=== PATIENT | male | born 1985 | race American Indian/Alaskan Native ===

== ENCOUNTER 2025-03-24 02:56 | Emergency (ER) | payer MEDICAID, SELFPAY ==
[2025-03-24 02:58] VITALS: BP 129/86; PULSE 109; RESP 18; TEMP 36.7; O2SAT 96; BMI 30.8
--- NOTE | 2025-03-24 03:25 | ED.GENADULT ---
HPI - General Adult General Chief complaint: Dental/Oral Stated complaint: Injury Time Seen by Provider: 03/24/25 03:09 Source: patient Mode of arrival: ambulatory Limitations: no limitations History of Present Illness ED Provider: Dr. Mamta Gannon HPI narrative: Patient comes to the emergency room complaining of dental pain in the right side. Patient states that he has been seen by dentist in [place]. Patient has a referral in 2 weeks for a maxillofacial surgeon. Patient states that he has been complaining of worsening pain. Also, patient states that, he had a tick in his ear, believes it has been then for a long time, does not know how long, and states that somehow he ended up spitting it out. And finally, patient states that his health insurance told him that because he does not have a primary care physician, he needed to come to the emergency room to get all of his pain medications refilled. Related Data Previous Rx's ?Medication ?Instructions ?Recorded amoxicillin 500 mg tablet 500 mg PO TID #30 tabs 03/24/25 Allergies Allergy/AdvReac Type Severity Reaction Status Date / Time No Known Allergies Allergy Verified 03/24/25 03:00 Review of Systems Review of Systems: Constitutional : No Weight loss, No Fever, No Chills, No Night Sweats, No Fatigue, No Malaise ENT/Mouth : Complaining of dental pain, No Hearing loss, No Ear Pain, No Nasal Congestion, No Sinus Pain, No Hoarseness, No sore throat, No Rhinorrhea, No Swallowing Difficulty Eyes: No Eye Pain, No Swelling, No Redness, No Foreign Body, No Discharge, No Vision Changes Cardiovascular : No Chest Pain, No SOB, No Dyspnea on Exertion, No Orthopnea, No Edema, No Palpitations Respiratory : No Cough, No Sputum, No Wheezing, No Smoke Exposure, No Dyspnea Gastrointestinal : No Nausea, No Vomiting, No Diarrhea, No Constipation, No abdominal Pain, No Hematochezia, No Melena Genitourinary : no irregular bleeding, No Dysuria, No Urinary Frequency, No Hematuria, No Urinary Incontinence, No Urgency, No Flank Pain, No Urinary Flow Changes, No Hesitancy Musculoskeletal : No joint pain, No Myalgias, No Joint Swelling Skin : No Skin Lesions, No rash Neuro : No Weakness, No Numbness, No Paresthesias, No Loss of Consciousness, No Dizziness, No Headache Psych : No Anxiety/Panic, No Depression, No SI/HI/AH/VH, No Social Issues, Heme/Lymph: No Bruising, No Bleeding,No Lymphadenopathy Endocrine : No Polyuria, No Polydipsia, No Temperature Intolerance Physical Exam ED Exam Exam: Appearance: Alert. Oriented X3. No acute distress. Eyes: Pupils equal, round and reactive to light. ENT: Pharynx normal. Poor dentition Neck: Normal inspection. Neck supple. No lymph nodes noted. No crepitus CVS: Normal heart rate and rhythm. Pulses normal. Normal S1 and S2 Respiratory: No respiratory distress. Breath sounds normal. No Wheezing. No rales Abdomen: Soft and nontender. No rigidity. No distention. Skin: Skin warm and dry. Normal skin color. Normal skin turgor. Extremities: No lower extremity edema. No Lacerations. No Rash Neuro: Oriented X 3. No motor deficit. No sensory deficit. Moving all extremities. No slurred speech. CN 2 through 12 grossly intact Psych: calm, bizarre affect Vital Signs: Vital Signs - 24 hr 03/24/25 02:58 Temperature 98.1 F Pulse Rate 109 H Respiratory Rate 18 Blood Pressure 129/86 Pulse Oximetry 96 Oxygen Delivery Method Room Air BMI result Body Mass Index 30.8 Medications Administered Discontinued Medications Generic Name Dose Route Start Last Admin Trade Name Anupq PRN Reason Stop Dose Admin Amoxicillin 500 mg 03/24/25 03:23 03/24/25 03:33 Amoxicillin 500 Mg Capsule PO 03/24/25 03:24 500 mg ONCE ONE Administration Ketorolac Tromethamine 60 mg 03/24/25 03:23 03/24/25 03:33 Ketorolac Tromethamine 60 Mg/2 Ml Vial IM 03/24/25 03:24 Not Given ONCE ONE Medical Decision Making Medical Decision Making MDM Narrative: Patient reports dental pain, has a follow-up appointment with maxillofacial surgery in 2 weeks. Patient was given p.o. amoxicillin Initially, patient agreed to take Toradol. However, when the patient's nurse approached him with the Toradol, he said that that shit doesnt work I reviewed patient's mass pad, patient gets prescribed gabapentin, Adderall and alprazolam. Consistently, patient has been getting his medications refilled, last was at the beginning of February. Patient should have enough medications to get him through the next 2 weeks until he gets seen by his provider. Patient states that there was a take in his ear. Just in case, we will send serologies to the lab. Discussed with the patient that if positive he will be contacted. Just before discharge, when registration was taking his information, patient said to registration staff that he was suicidal. We returned to talk to the patient, when I spoke to the patient and the patient's nurse, patient is adamant that he did not say that, has no intention of hurting himself. Denies SI or HI. Patient requested narcotics for his pain. This request was declined. Patient just said give me my flintstone vitamin and let me go As mentioned above, patient said to the registration staff that he was SI. I considered sectioning to of the patient. However, when I spoke with the patient, he was adamant that he did not make such statements and he is not SI or HI. Discharge Plan Discharge Clinical Impression: Toothache Patient Disposition: Home, Self-Care Instructions: Toothache (ED) Additional Instructions: Please follow-up with your primary care physician tomorrow. If you have any worsening or new symptoms, please return to the emergency room or call 911 Prescriptions: New amoxicillin 500 mg tablet 500 mg PO TID Qty: 30 0RF Print Language: Peruvian
--- OUTSIDE RECORDS SUMMARY | 2025-03-24 03:41 | XMS_ITS | Encounter Summary ---
Author Organization [facility] Address [address] [place] [address] Phone Care Team Providers Care Top Frame Maker Name Role Phone Andre Capps MD, DDS Unavailable [phone] Max Tyler MD Primary Care Provider Cristal Benjamin MD Unavailable Kartik Mandel MD Primary Care Provider [phone] Reason for Visit * Reason Onset Date Comments Dizziness 06/04/2023 Encounter Details Date Type Department Care Team (Late st Contact Info) Description 06/04/2023 Nurse Triage [facility] Medicine [address] [place] [address] Cristal Benjamin MD [address] [place] [address] MARIA [email or web address] Dizziness Social History Tobacco Use Types Packs/Day Years Used Date Smoking Tobacco: Every Day Cigarettes Smokeless Tobacco: Never Alcohol Use Standard Drinks/Week Comments Yes 3 (1 standard drink = 0.6 oz pur e alcohol) daily Child or Family Care Answer Date Record ed Do you have problems with on e of the following making it difficult for you to work, study, or receive health care? No 08/30/2020 Education Answer Date Recorded Are you interested in more education? Not on lanie e 09/06/2022 Are you concerned about learning? Not on file 09/06/2022 No 09/06/2022 No 09/06/2022 Food Answer Date Recorded Within the past 6 months we worried whether our food would run out before we got money to buy more. I choose not to answer 08/30/2020 Within the past 6 months the food we bought just didn't last and we didn't have enough money to get more. I choose not to answer 08/30/2020 Paying for Meds Answer Date Recorded Do you have trouble paying for medicines? No 08/30/2020 Paying Utility Bills Answer Date Record ed Do you have trouble paying your heating or elect ricity bill? No 08/30/2020 Transportation Answer Date Recorded Has the lack of transportati on kept you from medical appointments or from getting medications? No 08/30/2020 Unemployment Answer Date Recorded Are you currently unemployed or working on a part-time or temporary basis, and looking for work? No 08/30/2020 Digital Access Answer Date Recorded No 09/19/2022 No 09/19/2022 Reliable internet access at home? Not on file 09/19/2022 Device with a working camera? Not on file Sex and Gender Information Value Date Recorded Sex Assigned at Male 05/28/2022 9:40 PM EST Legal Sex Male 9:10 PM EDT Gender Identity Male 05/28/2022 9:40 PM EST Sexual Orientation Straight 05/28/2022 9: 40 PM EST Primary [place] Affiliation [place] documented as of this encounter Progress Notes * Soraida Borrego, MAGUE - 06/05/2023 10:31 AM EST Demetri calls, reports infection improved since beginning medicine Saturday. Feeling lightheaded again today, concerned about blood sugar. At work right now, feels safe driving. Lightheadedness primarilyoccurs with position changes. Feels like symptoms are stress and anxiety related and from pushing himself too hard. Ate 1/2 protein bar and yogurt 1 hour ago. Drank 40 oz of water and coffee, more richi er than coffee, so far today. Working to rectify work stressors. Thinks he may need some time off work, would like to discuss, possibly FMLA. Same day visit scheduled. * Araceli Moore FNP - 06/04/2023 10:53 AM EST Agreed thank you. * Jim Reynoso RN - 06/04/2023 10:24 AM EST Pt reports that his knees became wobbly in the evening yesterday and fell to the ground around 7 pm, was sweating and had chills, no siezure activty, had not eatten since 8 am, did not lose consciousiness, ate dinner and rested/slept till am, called out from work, knees are back to normal. slight lingering fatigue. Has been working hard at work. States that he's not very concerned but wanted pcp and office aware, advised that this sound like occurrence of hypoglycemia due to not having eat for long hours. Advised to try to eat through out the day, advised quick snacks when unable to eat a full meal. Pt will continue to monitor and call back as needed. FYI to pcp and POD Reason for Disposition Weakness from poor fluid intake Protocols used: Weakness (Generalized) and [id number] Nurse Triage Encounter Note Reason for Triage Eh Mosquera contacted office for Fall Call Disposition Home Care Patient/caregiver understands and will follow disposition: Patient/caregiver understands and will follow care advice: Yes, Plans To Follow Advice Disposition Comments: Protocols used: Weakness (Generalized) And Iadjttn-Bmyje-Ju Initial Symptom Screening and Assessment IA Symptom Onset Less than 24 hours Symptom Severity Mild - does not interfere with normal activities Symptom Pattern Other (Comment) Aggravating factors or triggers Other (comment) Home Treatments Rest Did the home treatments work? Yes Location? RLE; LLE Fever? No Other related symptoms Pt reports that his knees became wobbly in the evening yesterday and fell tothe ground around 7 pm, was sweating and had chills, no siezure activty, had not eatten since 8 am,did not lose consciousiness, ate dinner and rested/slept till am, called out from work, knees are back to normal. slight lingering fatigue. Has been working hard at work. Head or Brain (Neuro) Mental Status/Level of Consciousness Alert/Awake Loss of Consciousness? No Neuro Symptoms? Weakness Neuro other related symptoms weakness has resolved this am. Care Advice Given Care Advice Patient/Caregiver understands and will follow care advice?: Yes, plans to follow advice CALL BACK IF: * Unable to stand or walk * Passes out * Breathing difficulty occurs * You become worse REASSURANCE AND EDUCATION: * Not drinking enough fluids and being a little dehydrated is a common cause of mild weakness. * Vomiting and diarrhea can lead to dehydration. * During hot weather you sweat more and can become dehydrated more easily. * Here is some care advice that should help. DRINK FLUIDS: * Drink several glasses of fruit juice, other clear fluids, or water. * This will improve hydration and blood glucose. REST: * Lie down with feet elevated for 1 hour. * This will improve blood flow and increase blood flow to the brain. CALL BACK IF: * Still feeling weak after 2 hours of rest and fluids * Passes out (faints) * You become worse Patient will call back with additional questions or if symptoms change or worsen Jim Reynoso RN Reason for Disposition and Assessment documented in this encounter Plan of Treatment Not on file documented as of this encounter Visit Diagnoses Not on filedocumented in this encounter Additional Health Concerns Assessment Noted Time PHQ-9 Depression Total Score: 9 05/31/19 4:16 PM EST PHQ-2 Depression Total Score: 4 05/31/19 24 4:16 PM EST documented as of this encounter Care Teams Top Frame Maker Relationship Specialty Start Date End Date Max Tyler MD [address] [place] [id number] [email or web address] PCP - General 01/06/25 03/22/25 Kartik Mandel MD [address] [place] [address] [email or web address] PCP - General Family Medicine 03/23/25 Andre Capps MD, DDS [address] [place] [phone] [email or web address] machine operator 05/26/24 08/03/24 Cristal Benjamin MD [address] [place] [address] [address] [place] [address] MARIA [email or web address] Insurance Assigned Provider 03/13/25 documented as of this encounter Additional Source Comments The information contained in this document represents components of the legal health record. It is not the complete legal health record.[facility]
--- OUTSIDE RECORDS SUMMARY | 2025-03-24 03:41 | XMS_ITS | Encounter Summary ---
Author Organization [facility] Address [address] [place] [address] Phone Care Team Providers Care Family Psychologist Name Role Phone Max Tyler MD Primary Care Provider [phone] Cristal Benjamin MD Unavailable Kartik Mandel MD Primary Care Provider [phone] Encounter Details Date Type Department Care Team (Late st Contact Info) Description 09/25/2024 Procedure Pass [facility], Ct Scan - [address] [address] Social History Tobacco Use Types Packs/Day Years Used Date Smoking Tobacco: Former Cigarettes Smokeless Tobacco: Never Comments:Few months stopped Alcohol Use Standard Drinks/Week Comments Not 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 Not on file Intimate Partner Violence Answer Date R ecorded Are you denied basic needs s uch as food, clothing, or medical care? No 09/10/2024 In the past 12 months have y ou been in a relationship with a person who hurts, threatens, or tries to control you? No 09/10/2024 Are you denied basic needs s uch as food, clothing, or medical care? No 09/10/2024 In the past 12 months have y ou been in a relationship with a person who hurts, threatens, or tries to control you? No 09/10/2024 Sex and Gender Information Value Date Recorded Sex Assigned at Male 05/28/2022 9:40 PM EST Legal Sex Male 9:10 PM EDT Gender Identity Male 05/28/2022 9:40 PM EST Sexual Orientation Straight 05/28/2022 9: 40 PM EST Primary [place] Affiliation [place] documented as of this encounter Plan of Treatment Not on file documented as of this encounter Visit Diagnoses Not on filedocumented in this encounter Additional Health Concerns Assessment Noted Time PHQ-9 Depression Total Score: 9 05/31/19 24 4:16 PM EST PHQ-2 Depression Total Score: 4 05/31/19 4:16 PM EST documented as of this encounter Care Teams Family Psychologist Relationship Specialty Start Date End Date Max Tyler MD [address] [place] [address] [email or web address] PCP - General 01/06/25 03/22/25 Kartik Mandel MD [address] [place] [phone] [email or web address] PCP - General Family Medicine 03/23/25 Cristal Benjamin MD [address] [place] [address] [address] [place] [address] MARIA [email or web address] Insurance Assigned Provider 03/13/25 documented as of this encounter Additional Source Comments The information contained in this document represents components of the legal health record. It is not the complete legal health record.[facility]
--- OUTSIDE RECORDS SUMMARY | 2025-03-24 03:41 | XMS_ITS | Encounter Summary ---
Author Organization [facility] Address [address] [place] [address] Phone Care Team Providers Care Datastage Consultant Name Role Phone Andre Capps MD, DDS Unavailable [phone] Max Tyler MD Primary Care Provider [phone] Cristal Benjamin MD Unavailable [phone] Kartik Mandel MD Primary Care Provider [phone] Encounter Details Date Type Department Care Team (Late st Contact Info) Description 07/24/2024 Procedure Pass [facility], Ct Scan - [address] [id number] Social History Tobacco Use Types Packs/Day Years [...] as food, clothing, or medical care? No 06/17/2024 In the past 12 months have y ou been in a relationship with a person who hurts, threatens, or tries to control you? No 06/17/2024 Are you denied basic needs s uch as food, clothing, or medical care? No 06/17/2024 In the past 12 months have y ou been in a relationship with a person who hurts, threatens, or tries to control you? No 06/17/2024 Sex and Gender Information Value Date Recorded Sex Assigned at Male 05/28/2022 9:40 PM EST Legal Sex Male 9:10 PM EDT Gender Identity Male 05/28/2022 9:40 PM EST Sexual Orientation Straight 05/28/2022 9: 40 PM EST Primary [place] Affiliation [place] documented as of this encounter Plan of Treatment Not on file documented as of this encounter Visit Diagnoses Not on filedocumented in this encounter Additional Health Concerns Assessment Noted Time PHQ-9 Depression Total Score: 9 05/31/19 24 4:16 PM EST PHQ-2 Depression Total Score: 4 05/31/19 24 4:16 PM EST documented as of this encounter Care Teams Datastage Consultant Relationship Specialty Start Date End Date Max Tyler MD [address] [place] [phone] [email or web address] PCP - General 01/06/25 03/22/25 Kartik Mandel MD [address] [place] [phone] PCP - General Family Medicine 03/23/25 Andre Capps MD, DDS [address] [place] [phone] [email or web address] handwriting expert 05/26/24 08/03/24 Cristal Benjamin MD [address] [place] [address], [address] [place] [address] MARIA [email or web address] Insurance Assigned Provider 03/13/25 documented as of this encounter Additional Source Comments The information contained in this document represents components of the legal health record. It is not the complete legal health record.[facility]
--- OUTSIDE RECORDS SUMMARY | 2025-03-24 03:41 | XMS_ITS | Encounter Summary ---
Author Organization [facility] Address [address] [place] [address] Phone Care Team Providers Care General Surgery Physician Assistant Name Role Phone Andre Capps MD, DDS Unavailable [phone] Max Tyler MD Primary Care Provider Cristal Benjamin MD Unavailable Kartik Mandel MD Primary Care Provider [phone] Encounter Details Date Type Department Care Team (Late st Contact Info) Description 07/24/[address] [facility] [address] [place] [address] Cristal Benjamin MD [address] [place] [address] MARIA [email or web address] Social History Tobacco Use Types Packs/Day Years [...] Straight 05/28/2022 9: 40 PM EST Primary [place] Affiliation [place] documented as of this encounter Plan of Treatment Not on file documented as of this encounter Visit Diagnoses Not on filedocumented in this encounter Additional Health Concerns Assessment Noted Time PHQ-9 Depression Total Score: 9 05/31/19 4:16 PM EST PHQ-2 Depression Total Score: 4 05/31/19 4:16 PM EST documented as of this encounter Care Teams General Surgery Physician Assistant Relationship Specialty Start Date End Date Max Tyler MD [address] [place] [address] [email or web address] PCP - General 01/06/25 03/22/25 Kartik Mandel MD [address] [place] [address] [email or web address] PCP - General Family Medicine 03/23/25 Andre Capps MD, DDS [address] [place] [phone] [email or web address] tech 05/26/24 08/03/24 Cristal Benjamin MD [address] [place] [address] [address] [place] [address] MARIA [email or web address] Insurance Assigned Provider 03/13/25 documented as of this encounter Additional Source Comments The information contained in this document represents components of the legal health record. It is not the complete legal health record.[facility]
--- OUTSIDE RECORDS SUMMARY | 2025-03-24 03:41 | XMS_ITS | Encounter Summary ---
Author Organization [facility] Address [address] [place] [address] Phone Care Team Providers Care Supervisor Uranium Processing Name Role Phone Max Tyler MD Primary Care Provider Cristal Benjamin MD Unavailable [phone] Kartik Mandel MD Primary Care Provider [phone] Reason for Visit * Reason Onset Date Comments Referral 08/21/2024 Encounter Details Date Type Department Care Team (Late st Contact Info) Description 08/21/2024 Telephone [facility] [address] [place] [address] Cristal Benjamin MD [address] [place] [address] MARIA [email or web address] Referral Social History Tobacco Use Types Packs/Day Years [...] Straight 05/28/2022 9: 40 PM EST Primary [place] Affiliation [place] documented as of this encounter Progress Notes * Karma Rojas RN - 08/21/2024 9:41 AM EDT Spoke to [facility] oral surgery, states they are unable to accept jaw pain diagnosis due to patient's [employer] insurance. Recommend sending referral to [facility] as they take [employer]. Referral pended. * Prabha Charles - 08/21/2024 8:25 AM EDT Patient called in regarding the referral to [facility] Oral Surgery. Patient stated they are not acceptingthe referral due to the diagnosis being pain. Patient is looking to follow up on this stating it feels like his jaw has caved in more. Please contact and advise. Central Support Hybrid Car Mechanic (Please do not reply to this user; this inbox is not monitored.) Thank you. documented in this encounter Plan of Treatment Not on file documented as of this encounter Visit Diagnoses Diagnosis Jaw pain- Primary documented in this encounter Additional Health Concerns Assessment Noted Time PHQ-9 Depression Total Score: 9 05/31/19 4:16 PM EST PHQ-2 Depression Total Score: 4 05/31/19 24 4:16 PM EST documented as of this encounter Care Teams Supervisor Uranium Processing Relationship Specialty Start Date End Date Max Tyler MD [address] [place] [phone] [email or web address] PCP - General 01/06/25 03/22/25 Kartik Mandel MD [address] [place] [phone] PCP - General Family Medicine 03/23/25 Cristal Benjamin MD [address] [place] [address], [address] [place] [address] MARIA [email or web address] Insurance Assigned Provider 03/13/25 documented as of this encounter Additional Source Comments The information contained in this document represents components of the legal health record. It is not the complete legal health record.[facility]
--- OUTSIDE RECORDS SUMMARY | 2025-03-24 03:41 | XMS_ITS | Encounter Summary ---
Author Organization [facility] Address [address] [facility] [address] [place] [address] Phone Care Team Providers Care Stack Matcher Name Role Phone Max Tyler MD Primary Care Provider [phone] Cristal Benjamin MD Unavailable [phone] Kartik Mandel MD Primary Care Provider [phone] Reason for Visit * Reason Onset Date Comments Medication Management 01/13/2025 Encounter Details Date Type Department Care Team (Late st Contact Info) Description 01/13/2025 Telephone [facility] Internal Medicine [address] [place] [address] Max Tyler MD [address] [place] [address] [email or web address] Medication Management Social History Tobacco Use Types Packs/Day Years Used Date Smoking Tobacco: Former Cigarettes Passive Smoke Exposure: Never Smokeless Tobacco: Never Comments:Few months stopped Alcohol Use Standard Drinks/Week Comments Not Currently 0 (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 Never True 01/06/2025 Within the past 6 months the food we bought just didn't last and we didn't have enough money to get more. Never True Residential Stability Answer Date Recor ded What is your housing situation today? I have gail sing 01/06/2025 How many times have you move d in the past 12 months? Zero (I did not move) 01/06/2025 Paying for Meds Answer Date Recorded Do you have trouble paying for medicines? No 01/06/2025 Paying Utility Bills Answer Date Record ed Do you have trouble paying your heating or elect ricity bill? No 01/06/2025 Transportation Answer Date Recorded Has the lack of transportati on kept you from medical appointments or from getting medications? No 01/06/2025 Unemployment Answer Date Recorded Are you currently unemployed or working on a part-time or temporary basis, and looking for work? No 08/30/2020 Digital Access Answer Date Recorded No 01/06/2025 Yes 01/06/2025 Do you have reliable internet access at home? Ye s 01/06/2025 Do you have a device (e.g., phone, tablet, computer) with a working camera? Yes 01/06/2025 Intimate Partner Violence Answer Date R ecorded Are you denied basic needs s uch as food, clothing, or medical care? No 01/06/2025 In the past 12 months have y ou been in a relationship with a person who hurts, threatens, or tries to control you? No 01/06/2025 Are you denied basic needs s uch as food, clothing, or medical care? No 01/06/2025 In the past 12 months have y ou been in a relationship with a person who hurts, threatens, or tries to control you? No 01/06/2025 Sex and Gender Information Value Date Recorded Sex Assigned at Male 05/28/2022 9:40 PM EST Legal Sex Male 9:10 PM EDT Gender Identity Male 05/28/2022 9:40 PM EST Sexual Orientation Straight 05/28/2022 9: 40 PM EST Primary [place] Affiliation [place] documented as of this encounter Progress Notes * Juan Pablo Tarango - 01/13/2025 2:52 PM EDT [facility], Pt called them this afternoon very agitated, his refills were refused because he is no longer under the care of the original prescribers, Pt has a NPV scheduled at [facility] in April, please contact the patient and [facility] to advise. Central Support Foil Spooler (Please do not reply to this user; [...] documented as of this encounter Care Teams Stack Matcher Relationship Specialty Start Date End Date Max Tyler MD [address] [place] [address] [email or web address] PCP - General 01/06/25 03/22/25 Kartik Mandel MD [address] [place] [address] PCP - General Family Medicine 03/23/25 Cristal Benjamin MD [address] [place] [address] [address] [place] [address] MARIA [email or web address] Insurance Assigned Provider 03/13/25 documented as of this encounter Additional Source Comments The information contained in this document represents components of the legal health record. It is not the complete legal health record.[facility]
--- OUTSIDE RECORDS SUMMARY | 2025-03-24 03:41 | XMS_ITS | Encounter Summary ---
Author Organization [facility] Address [address] [facility] [address] [place] [address] Phone Care Team Providers Care Mask Layout Designer Name Role Phone Andre Capps MD, DDS Unavailable [phone] Max Tyler MD Primary Care Provider Cristal Benjamin MD Unavailable [phone] Kartik Mandel MD Primary Care Provider [phone] Encounter Details Date Type Department Care Team (Late st Contact Info) Description 07/20/2024 Procedure Pass [facility] [address] [place], [place] [id number] Social History Tobacco Use Types Packs/Day Years Used Date Smoking Tobacco: Former Cigarettes Smokeless Tobacco: Never Comments: Half a pack a day Alcohol Use Standard Drinks/Week Comments Not Currently [...] Straight 05/28/2022 9: 40 PM EST Primary [place] Affiliation [place] documented as of this encounter Plan of Treatment Not on file documented as of this encounter Visit Diagnoses Not on filedocumented in this encounter Additional Health Concerns Assessment Noted Time PHQ-9 Depression Total Score: 9 05/31/19 24 4:16 PM EST PHQ-2 Depression Total Score: 4 05/31/19 24 4:16 PM EST documented as of this encounter Care Teams Mask Layout Designer Relationship Specialty Start Date End Date Max Tyler MD [address] [place] [address] [email or web address] PCP - General 01/06/25 03/22/25 Kartik Mandel MD [address] [place] [address] PCP - General Family Medicine 03/23/25 Andre Capps MD, DDS [address] [place] [address] [email or web address] 05/26/24 08/03/24 Cristal Benjamin MD [address] [place] [address] [address] [place] [address] MARIA [email or web address] Insurance Assigned Provider 03/13/25 documented as of this encounter Additional Source Comments The information contained in this document represents components of the legal health record. It is not the complete legal health record.[facility]
--- OUTSIDE RECORDS SUMMARY | 2025-03-24 03:41 | XMS_ITS | Encounter Summary ---
Author Organization [facility] Address [address] [facility] [address] [place] [address] Phone Care Team Providers Care Scraper Hand Name Role Phone Andre Capps MD, DDS Unavailable [phone] Max Tyler MD Primary Care Provider Cristal Benjamin MD Unavailable Kartik Mandel MD Primary Care Provider [phone] Encounter Details Date Type Department Care Team (Late st Contact Info) Description 02/03/2024 Procedure Pass [facility], [address] [place] [address] Social History Tobacco Use Types Packs/Day Years [...] as food, clothing, or medical care? No 09/06/2023 In the past 12 months have y ou been in a relationship with a person who hurts, threatens, or tries to control you? No 09/06/2023 Are you denied basic needs s uch as food, clothing, or medical care? No 09/06/2023 In the past 12 months have y ou been in a relationship with a person who hurts, threatens, or tries to control you? No 09/06/2023 Sex and Gender Information Value Date Recorded Sex Assigned at Male 05/28/2022 9:40 PM EST Legal Sex Male 9:10 PM EDT Gender Identity Male 05/28/2022 9:40 PM EST Sexual Orientation Straight 05/28/2022 9: 40 PM EST Primary [place] Affiliation [place] documented as of this encounter Plan of Treatment Not on file documented as of this encounter Visit Diagnoses Not on filedocumented in this encounter Additional Health Concerns Assessment Noted Time PHQ-9 Depression Total Score: 9 05/31/19 24 4:16 PM EST PHQ-2 Depression Total Score: 4 05/31/19 24 4:16 PM EST documented as of this encounter Care Teams Scraper Hand Relationship Specialty Start Date End Date Max Tyler MD [address] [place] [address] [email or web address] PCP - General 01/06/25 03/22/25 Kartik Mandel MD [address] [place] [address] PCP - General Family Medicine 03/23/25 Andre Capps MD, DDS [address] [place] [address] [email or web address] 05/26/24 08/03/24 Cristal Benjamin MD [address] [place] [address], [address] [place] [address] MARIA [email or web address] Insurance Assigned Provider 03/13/25 documented as of this encounter Additional Source Comments The information contained in this document represents components of the legal health record. It is not the complete legal health record.[facility]
--- OUTSIDE RECORDS SUMMARY | 2025-03-24 03:41 | XMS_ITS | Data Portability ---
Author Organization [place] [facility], [facility] Address [address] [address] Care Team Providers Care Research Program Coordinator Name Role Phone RHODA ALEGRIA Primary Care Provider [phone] Assessment Encounter Date Assessment Date Assessment LastModified by Organization Details LastModified Time 05/25/2024 05/25/2024 Patient reports his thyroid nodule biopsy is scheduled for the near future. Happy to be available to review results when they become available. Offered him follow-up in my office in 4 to 6 weeks. He had a secondary concern of syringomyelia and is awaiting second opinion with neurology or neurosurgery Additionally is being followed by speech pathology in [place] with anticipation of repeat fiberoptic laryngoscopy next summer Gastroenterology is following him for Krause's esophagus with likely upper GI in the near future [email or web address] Not available 05/25/2024 14:47:15 Plan of Treatment Reminders Order Date Submit Date Provider Last Modified By Organization Details Last Modified Time Details Appointments None record ed. Lab None record ed. Referral None record ed. Procedures None record ed. Surgeries None record ed. Imaging None record ed. Medication Orders None record ed. Patient TargetsNo targets recorded. Patient InstructionsNo instructions recorded. Reason for Referral None Reported. Problems Name Problem SNOMED Code Status Onset Date Resolution Date Notes Provider Name and Address Organization Details Recorded Time Dysphagia 52113111 Active 2022 Dysphagia , unspecifi ed; Note: Date Diagnosed : 04/05/2023 3:08 PM (R13.10) Not Available [facility] 4 02:19:47 Pain of right temporoma ndibular joint 79242467051 477175 Active 2022 Arthralgi a of right temporoma ndibular joint; Note: Date Diagnosed : 04/05/2023 3:08 PM (M26.621) Not Available [facility] 4 02:19:52 Thyroid nodule 691329933 Active 2024 MATEO KRUSE MD [address], [place], [address] , [place] [facility] 5 12:58:07 Syringomy laura 638081580 Active 2024 MATEO KRUSE MD [address], [place], [address] , [place] [facility] [place] 5 14:47:19 Krause's esophagus 829031266 Active 2024 MATEO KRUSE MD [address], [place], [address] , [place] [facility] 5 14:47:24 Problem Notes None recorded. Medical Equipment None Reported. Medications Name Sig Start Date Stop Date Status Note LastModified by Organization Details LastModified Time amoxicilli n 500 mg capsule TAKE 1 CAPSULE BY MOUTH THREE TIMES A DAY active Not Available Not Available No t Available fluconazol e 100 mg tablet TAKE 1 TABLET BY MOUTH DAILY FOR 7 DAYS active Not Available Not Available No t Available clotrimazo le 10 mg dmitriy active Medicatio n ID: [id number] Br and Name: clotrimaz ole Send Method: E-Prescri bed Subs Allowed: subs OK Specia l Instructi on: TAKE 1 DMITRIY BY MOUTH 5 TIMES A DAY Medic ationGene ricName: clotrimaz ole Not Available Not Available Not Available nystatin 100,000 unit/mL oral suspension SHAKE LIQUID AND TAKE 5 ML BY MOUTH FOUR TIMES DAILY FOR 10 DAYS active Not Available Not Available No t Available nicotine 14 mg/24 hr daily transderma l patch active Not Available Not Available Not Available alprazolam 1 mg tablet TAKE 1 TABLET BY MOUTH TWICE A DAY active Not Available Not Available No t Available nicotine (polacrile x) [address] INSIDE CHEEK EVERY 30 MINUTES NEEDED FOR SMOKING CESSATION . CHEW UNTIL TINGLE THEN PLACE GUM BETWEEN CHEEK AND GUM. MAX 20 PIECES PER active Not Available Not Available No t Available hydrocodon e 5 mg-acetami nophen 325 mg tablet TAKE 1 TABLET BY MOUTH 2 (TWO) TIMES A DAY NEEDED FOR PAIN active Not Available Not Available No t Available sucralfate 100 mg/mL oral suspension TAKE 10 ML (1 G TOTAL) BY MOUTH 4 TIMES A DAY active Not Available Not Available No t Available omeprazole 40 mg capsule,de layed release TAKE 1 CAPSULE BY MOUTH TWICE A DAY active Not Available Not Available No t Available citalopram 20 mg tablet TAKE 1 TABLET BY MOUTH EVERY DAY active Not Available Not Available No t Available gabapentin 300 mg capsule TAKE 2 CAPSULES BY MOUTH 3 TIMES A DAY active Not Available Not Available No t Available omeprazole 20 mg capsule,de layed release active Medicatio n ID: [id number] Br and Name: omeprazol e Send Method: E-Prescri bed Subs Allowed: subs OK Medica tionGener icName: omeprazol e Not Available Not Available Not Available Adderall XR 10 mg capsule,ex tended release TAKE 1 CAPSULE BY MOUTH EVERY DAY IN THE MORNING active Not Available Not Available No t Available diclofenac sodium 75 mg tablet,del ayed release TAKE 1 TABLET BY MOUTH TWICE A DAY active Not Available Not Available No t Available fluticason e propionate 50 mcg/actuat ion nasal spray,susp ension SHAKE LIQUID AND USE 1 SPRAY IN EACH NOSTRIL DAILY FOR 14 DAYS active Not Available Not Available No t Available amoxicilli n 875 mg-potassi um clavulanat e 125 mg tablet TAKE 1 TABLET BY MOUTH TWICE A DAY FOR 7 DAYS active Not Available Not Available No t Available nicotine (polacrile x) 2 mg buccal lozenge PLEASE SEE ATTACHED FOR DETAILED DIRECTION S active Not Available Not Available No t Available nicotine (polacrile x) 2 [address] mini loz[address] 1 LOZENGE INSIDE CHEEK EVERY 30 MINUTES NEEDED. MAX 20 PIECES PER DAY active Not Available Not Available No t Available Vitals Date Recorded Body height Body mass index (BMI) Body weight Provider Name and Address Organization Details Last Updated DateTime 05/25/2024 187.96 cm 29.5 kg/m2 953332.25 g Christel Cha [place] [facility] 05/25/2024 14:18:09 Social History None recorded. Functional Status None recorded. Mental Status None recorded. Family History Nothing Reported. Medical History No medical history recorded. Past Encounters Encounter ID Performer Location Encounter Start Date Encounter Closed Date Diagnosis/Indication Diagnosis SNOMED-CT Code Diagnosis ICD10 Code Diagnosis IMO Codes Diagnosis Note [id number] MATEO KRUSE MD [facility] [address] [place] [address] 05/25/2024 13:47:37 05/25/2024 14:45:50 Thyroid nodule 236544632 E04.1 Syringomyelia 892010165 G95.0 Krause's esophagus 3029 19374 K22.70 Health Concerns Section Related Observation LastModified by Organization Detai ls LastModified Time None Recorded Concern Status LastModified by Organization Details LastModified Time None Recorded Advance Directives Directive None Recorded Payers Insurance Date Sequence Insurance Name Policy Number Policy Elizabeth Covered Member ID Elizabeth Member ID Guarantor Name 06/24/2024 1 [employer] - DOS ON OR AFTER 2022 - [employer] (MEDICAID REPLACEMENT - HMO) Eh Garcia [id number] Eh Garcia 05/25/2024 1 [facility] [id number] Eh Garcia [id number] Eh Garcia Notes Date Note Type Note Provider Name and Address Organization Details Recorded Time text/html ROS as noted in the HPI LEFT thyroid nodule 04/15/2024 ultrasound thyroid [place] [id number] mm inferior left thyroid nodule possible parathyroid adenoma. TI RADS 4, needs FNA FNA was requested for thyroid - pending today he admits to no sleep in past 36 hoursshared photos on phone of clear sputum in metal sinksince prior visit met with dentist for bridge work+bruxism sig hxtobacco - stopped 2ppd met with laryngology [place] Anh [facility] at [facility] - recommended thyroid nodule workupsyringomyelia - recommended see neurology/neurosurgeonGI - UGI requested for krause's followup his mentor Cecil Craft recently of throat cancer 2022 MATEO KRUSE MD [address], [address], [facility] - [facility] 05/25/2024 14:47:47
--- OUTSIDE RECORDS SUMMARY | 2025-03-24 03:41 | XMS_ITS | Encounter Summary ---
Author Organization [facility] Address [address] [place] [address] Phone Care Team Providers Care Ground Hand Name Role Phone Max Tyler MD Primary Care Provider [phone] Cristal Benjamin MD Unavailable Kartik Mandel MD Primary Care Provider [phone] Encounter Details Date Type Department Care Team (Late st Contact Info) Description 12/08/2024 Procedure Pass [facility], [facility] Scan - [address] [address] Social History Tobacco Use Types Packs/Day Years [...] got money to buy more. Never True 12/08/2024 Within the past 6 months the food we bought just didn't last and we didn't have enough money to get more. Never True Residential Stability Answer Date Recor ded What is your housing situation today? I have a place to live today, but I am worried about losing it in the next 3 months 12/08/2024 How many times have you move d in the past 12 months? Zero (I did not move) 12/08/2024 Paying for Meds Answer Date Recorded Do you have trouble paying for medicines? No 12/08/2024 Paying Utility Bills Answer Date Record ed Do you have trouble paying your heating or elect ricity bill? No 12/08/2024 Transportation Answer Date Recorded Has the lack of transportati on kept you from medical appointments or from getting medications? No 12/08/2024 Unemployment Answer Date Recorded Are you currently unemployed or working on a part-time or temporary basis, and looking for work? No 08/30/2020 Digital Access Answer Date Recorded No 12/08/2024 Yes 12/08/2024 Do you have reliable internet access at home? Ye s 12/08/2024 Do you have a device (e.g., phone, tablet, computer) with a working camera? Yes 12/08/2024 Intimate Partner Violence Answer Date R ecorded Are you denied basic needs s uch as food, clothing, or medical care? No 12/08/2024 In the past 12 months have y ou been in a relationship with a person who hurts, threatens, or tries to control you? No 12/08/2024 Are you denied basic needs s uch as food, clothing, or medical care? No 12/08/2024 In the past 12 months have y ou been in a relationship with a person who hurts, threatens, or tries to control you? No 12/08/2024 Sex and Gender Information Value Date Recorded Sex Assigned at Male 05/28/2022 9:40 PM EST Legal Sex Male 9:10 PM EDT Gender Identity Male 05/28/2022 9:40 PM EST Sexual Orientation Straight 05/28/2022 9: 40 PM EST Primary [place] Affiliation [place] documented as of this encounter Functional Status * Calculated C-SSRS Risk Score (Lifetime/Recent) Answer Date of Assessment Author No Risk Indicated 12/08/2024 3:15 PM EDT Ana Abdalla RN * [place] Suicide Severity Rating Scale (Screener/Recent Self-Report) Question Answer Date of Assessment Author 1. Wish to be (Past 1 Month) No 025 3:15 PM EDT Ana Abdalla RN 2. Non-Specific Active Suici paulo Thoughts (Past 1 Month) No 12/08/2024 3:15 PM EDT Ana Abdalla RN 6. Suicidal Behavior (Lifetime) No 3:15 PM EDT Ana Abdalla RN documented as of this encounter Plan of Treatment Not on file documented as of this encounter Visit Diagnoses Not on filedocumented in this encounter Additional Health Concerns Assessment Noted Time PHQ-9 Depression Total Score: 9 05/31/19 4:16 PM EST PHQ-2 Depression Total Score: 4 05/31/19 4:16 PM EST documented as of this encounter Care Teams Ground Hand Relationship Specialty Start Date End Date Max Tyler MD [address] [place] [address] [email or web address] PCP - General 01/06/25 03/22/25 Kartik Mandel MD [address] [place] [address] PCP - General Family Medicine 03/23/25 Cristal Benjamin MD [address] [place] [address], [address] [place] [address] MARIA [email or web address] Insurance Assigned Provider 03/13/25 documented as of this encounter Additional Source Comments The information contained in this document represents components of the legal health record. It is not the complete legal health record.[facility]
--- OUTSIDE RECORDS SUMMARY | 2025-03-24 03:41 | XMS_ITS | Encounter Summary ---
Author Organization [facility] Address [address] [place] [address] Phone Care Team Providers Care Purification Operator Helper Name Role Phone Max Tyler MD Primary Care Provider Cristal Benjamin MD Unavailable Kartik Mandel MD Primary Care Provider [phone] Reason for Visit * Reason Comments Medication Refill Encounter Details Date Type Department Care Team (Late st Contact Info) Description 12/23/2024 Refill [facility] [address] [place] [address] Cristal Benjamin MD [address] [facility] [address] [place] [address] MARIA [email or web address] Medication Refill Social History Tobacco Use Types Packs/Day Years [...] Straight 05/28/2022 9: 40 PM EST Primary [place] Affiliation [place] documented as of this encounter Progress Notes * Soraida Isabel - 12/24/2024 3:47 PM EDT IMPORTANT - At least one Rx mismatch identified. Original(s) may be discontinued, , or different strength/form. Review required. At least one Rx below has no protocol and needs review. Rx Care Gap Status - Instructions for Clinical Staff (prescriber discretion applies): > Mismatch review guide > No future appt: Please schedule if appropriate. Visit Info Last visit: 12/07/2024 Ruddy Charles DO - Family Medicine [facility] > Requested f/u: Return if symptoms worsen or fail to improve. Upcoming visit: None ACTIONS TAKEN BY Soraida Isabel - Mismatch detail: Rx requested is and not on active med list. Rx(s) without protocol Renewal is at prescriber discretion. - amoxicillin/potassium clav Rx mismatch - Original(s) may be discontinued, , or changed to a different strength or form. documented in this encounter Plan of Treatment Not on file documented as of this encounter Visit Diagnoses Not on filedocumented in this encounter Additional Health Concerns Assessment Noted Time PHQ-9 Depression Total Score: 9 05/31/19 24 4:16 PM EST PHQ-2 Depression Total Score: 4 05/31/19 24 4:16 PM EST documented as of this encounter Care Teams Purification Operator Helper Relationship Specialty Start Date End Date Max Tyler MD [address] [place] [phone] [email or web address] PCP - General 01/06/25 03/22/25 Kartik Mandel MD [address] [place] [address] [email or web address] PCP - General Family Medicine 03/23/25 Cristal Benjamin MD [address] [place] [address] 7 [place] [address] MARIA [email or web address] Insurance Assigned Provider 03/13/25 documented as of this encounter Additional Source Comments The information contained in this document represents components of the legal health record. It is not the complete legal health record.[facility]
--- OUTSIDE RECORDS SUMMARY | 2025-03-24 03:41 | XMS_ITS | Encounter Summary ---
Author Organization [facility] Address [address] [place] [address] Phone Care Team Providers Care [employer] Name Role Phone Andre Capps MD, DDS Unavailable [phone] Max Tyler MD Primary Care Provider Cristal Benjamin MD Unavailable Kartik Mandel MD Primary Care Provider [phone] Encounter Details Date Type Department Care Team (Late st Contact Info) Description 02/03/2024 Procedure Pass [facility], [address] [address] Social History Tobacco Use Types Packs/Day Years [...] Straight 05/28/2022 9: 40 PM EST Primary [place] Affiliation [place] documented as of this encounter Plan of Treatment Not on file documented as of this encounter Visit Diagnoses Not on filedocumented in this encounter Additional Health Concerns Assessment Noted Time PHQ-9 Depression Total Score: 9 05/31/19 24 4:16 PM EST PHQ-2 Depression Total Score: 4 05/31/19 24 4:16 PM EST documented as of this encounter Care Teams [employer] Relationship Specialty Start Date End Date Max Tyler MD [address] [place] [id number] [email or web address] PCP - General 01/06/25 03/22/25 Kartik Mandel MD [address] [place] [id number] PCP - General Family Medicine 03/23/25 Andre Capps MD, DDS [address] [place] [id number] rn manager 05/26/24 08/03/24 Cristal Benjamin MD [address] [place] [address], [address] [place] [address] [email or web address] [email or web address] Insurance Assigned Provider 03/13/25 documented as of this encounter Additional Source Comments The information contained in this document represents components of the legal health record. It is not the complete legal health record.[facility]
--- OUTSIDE RECORDS SUMMARY | 2025-03-24 03:41 | XMS_ITS | Clinical Summary ---
Author Organization [facility] Address [address] [place] [address] Phone Care Team Providers Care Neurology Director Name Role Phone Cristal Benjamin MD Unavailable [phone] Kartik Mandel MD Primary Care Provider Allergies No known active allergies Medications sucralfate (CARAFATE) 100 mg/mL suspensionIndicati ons:Esophageal pain TAKE 10 ML (1 G TOTAL) BY MOUTH 4 TIMES A DAY 1200 mL 2 5 Active multivitamin Liqd Take 5 mL by mouth daily. Active calcium carbonate-vitamin D3 500 mg-400 units per tablet Take 1 tablet by mouth daily. Active glucosamine 500 mg Cap Take 500 mg by mouth 3 (three) times a day. Active omeprazole (PRILOSEC) 40 MG capsule TAKE 1 CAPSULE BY MOUTH TWICE A DAY 180 capsule 3 5 Active fluticasone propionate (FLONASE) 50 mcg/actuation nasal sprayIndications:S easonal allergies SHAKE LIQUID AND USE 1 SPRAY IN EACH NOSTRIL DAILY FOR 14 DAYS 48 mL 1 5 Active gabapentin (NEURONTIN) 300 MG capsuleIndications :Jaw pain,Other chronic pain TAKE 3 CAPSULES BY MOUTH 3 TIMES A DAY. 252 capsule 5 Active dextroamphetamine- amphetamine (ADDERALL XR) 10 MG 24 hr capsuleIndications :Attention deficit hyperactivity disorder (ADHD), predominantly inattentive type Take 1 capsule (10 mg total) by mouth every morning. 28 capsule 5 Active ALPRAZolam (XANAX) 1 MG tabletIndications: Anxiety state Take 1 tablet (1 mg total) by mouth 2 (two) times a day as needed for anxiety. 2 tablet 5 Active citalopram (CELEXA) 20 MG tabletIndications: Anxiety disorder Take 1 tablet (20 mg total) by mouth 2 (two) times a day. 180 tablet 5 Active Active Problems Problem Noted Date Diagnosed Date Chronic cough 12/07/2024 Assessment & Plan (12/07/2024 5:27 PM EDT): Demetri notes that his cough has been improving. I reviewed his pulmonary function test that were done on 11/30/2024 over the virtual visit today and I informed him thatnny his PFTs are reassuring. He was appreciative. Chronic dental pain 12/07/2024 Assessment & Plan (12/07/2024 5:30 PM EDT): Virtual Visit Attestation Modality: video Provider Location, state disclosed to patient: practice location Patient Location: home Patient State or Country: [place] states that he has been having issues with a possible dental or gingival infection. He notes that his last dental appointment was roughly a year ago and he has been having a hard time trying to find a new dentist. He notes that there is bubbles in his saliva and he is concerned about infection but he currently denies any jaw pain or fever. He is perseverating about this dental infection and I informed him that over virtual visit there is limitations and his chief complaint is one of these limitation- thus I advised him to go to the ER or urgent care today for an evaluation. He notes that he will go later today for an evaluation. I strongly urged him to find a dentist and to also obtain a thermometer to check for fevers throughout the day and to call if he has a fever. He understands and agrees with this plan of action. Chronic bronchitis with productive mucopurulent cough 09/29/2024 Chronic sinus complaints 09/29/2024 Axillary lymphadenopathy 08/06/2024 Assessment & Plan (08/06/2024 12:24 PM EDT): Found to have right axillary lymphadenopathy with LN of 1.6 x 1.0 cm without atypical features on the CT scan. I am unable to palpate any lymphadenopathy on my exam of bilateral axillae or in supraclavicular or cervical regions. Given no other concerning lymphadenopathy was found, will hold off on further workup including biopsy at this time. Will obtain lab work to ensure no major abnormalities on his CBCd. Will need to consider repeat imaging of that lymph node at appropriate timing pending other studies and evaluations with specialist. Multiple pulmonary nodules 08/06/2024 Assessment & Plan (09/17/2024 2:59 PM EDT): Has upcoming pulmonology evaluation. Assessment & Plan (08/06/2024 12:24 PM EDT): And of multiple pulmonary nodules on CT chest, up to 4 mm. He does have a tobacco use history although patient is 39. Encourage patient to call to schedule pulmonology so they can help determine appropriate follow-up for for these findings. Coronary artery disease invo lving minto coronary artery of minto heart without angina pectoris 08/06/2024 Assessment & Plan (09/17/2024 3:00 PM EDT): Cholesterol levels elevated. Encouraged dietary changes to improve cardiovascular health. - Advise reducing processed foods to improve cholesterol levels. Assessment & Plan (08/06/2024 12:25 PM EDT): Found to have moderate coronary calcifications on recent CT chest, to a higher extent that expected given patient's age per radiology report. Patient is asymptomatic with no symptoms of angina. Will obtain lipid panel, goal LDL <100 given these findings. Thyroid nodule 04/17/2024 Assessment & Plan (09/17/2024 3:00 PM EDT): Previous aspirations unsuccessful. Further evaluation by head scorer needed for management. - Refer to endocrinology for evaluation and management of the thyroid nodule. Assessment & Plan (08/06/2024 12:18 PM EDT): Patient is in contact with the scheduling team to get the thyroid biopsy rescheduled. Assessment & Plan (07/24/2024 5:42 PM EDT): Encourage patient to reschedule thyroid biopsy, he will call to schedule. Assessment & Plan (07/09/2024 5:11 PM EDT): Unfortunately recent biopsy was nondiagnostic. Repeat biopsy scheduled for later this month. Assessment & Plan (06/11/2024 4:36 PM EST): Demetri will be seeing his specialist on 06/17/2024 for a thyroid biopsy. Assessment & Plan (05/22/2024 1:59 PM EST): 1.7 cm thyroid nodule visualized on recent MR and U/S, urgent referral to interventional radiology for biopsy placed today. Assessment & Plan (04/17/2024 1:44 PM EST): Virtual Visit Attestation Modality: interactive audio (phone only) Provider Location, state disclosed to patient: practice location Patient Location: home Patient State or Country: [place] E&On-Q-ity Billing based on time ([id number]): Yes Total time spent on date of service (min): 10 Time spent with patient during visit (min): 14 I personally spent the total time as documented on care for this patient on the date of the encounter, of which the time spent with the patient during the encounter has been separately documented. I reviewed his recent thyroid ultrasound showing a 1.7 cm nodule. This was seen on his most recent MRI of the neck-incidental finding. I placed a referral to ENT for biopsy. I also messaged my nurses to facilitate this referral-marked it as urgent. He will follow-up with his PCP next month. I informed him to call if there are any other issues or concerns. He understands and agrees. Jaw pain 04/03/2024 Assessment & Plan (09/17/2024 3:00 PM EDT): Referred to [facility] oral surgery, will ask triage team to assist in getting this referral processed. No evidence of fungal or bacterial infection today. Assessment & Plan (08/06/2024 12:20 PM EDT): Unfortunately his appointment with [facility] was canceled, will send in a new referral for nonsurgical management although he might likely need revision of prior dental work. Given he has waited a few months for the [facility] consultation that was abruptly canceled, I have placed an urgent referral and have asked our triage team to assist in getting this processed as soon as possible. Assessment & Plan (07/09/2024 5:13 PM EDT): Recently well-managed with gabapentin 60 mg 3 times daily. Does continue to use hydrocodone twice daily as needed as well, will hope to wean off of opiates as he gets definitive treatment with [facility]. Assessment & Plan (05/22/2024 2:02 PM EST): As discussed separately, may be component of trigeminal neuralgia that is playing a role in his jaw pain. Per last assessment with ENT, [facility] would be an appropriate referral given extensive dental work he has had previously that is led to symptoms. We have increased his gabapentin to 600 mg 3 times daily. If on follow-up he has had minimal improvement, will trial carbamazepine for possible trigeminal neuralgia. Referral to [facility] and [facility] [place] today as well. Follow-up in 6 weeks. Assessment & Plan (04/17/2024 1:45 PM EST): Ongoing jaw pain-I refilled his [place] today-1 tablet twice a day for 28 days and I increase his gabapentin. Follow-up with PCP next month. He understands and agrees. He will call if there are any other issues or concerns. Assessment & Plan (04/03/2024 2:46 PM EST): Demetri has ongoing right sided jaw pain. He has an MRI upcoming. He will follow- up with ENT. I refilled his pain [id number] be taken as directed and I gave him guidance to take gabapentin at night to help with his pain control and sleep. He will follow-up with his PCP in a month. He will call if there are any other issues or concerns. He understands and agrees. Syringomyelia 02/03/2024 Assessment & Plan (05/22/2024 2:00 PM EST): Recent assessment with neurosurgery, did not think that syringomyelia required further monitoring or intervention at this time. Assessment & Plan (02/03/2024 5:19 PM EDT): History of syringomyelia, unclear whether this is related to patient's chronic esophageal pain. Regardless will order MR C-Spine and MR T-Spine to further evaluate. Consider referral to neurology pending results. Insufficient health insurance coverage Assessment & Plan (02/03/2024 5:21 PM EDT): Referral to [facility] to assist with health insurance coverage as well as unemployment. 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 CT chest did not reveal any major abnormalities in his lungs. Evaluation with pulmonology scheduled for 10/29. Follow-up with me following. Assessment & Plan (08/06/2024 12:21 PM EDT): I remained to be concerned that he has underlying bronchiectasis given purulence, sometimes bloody sputum, esophagitis, frequent sinusitis. CT chest did not reveal any major abnormalities in his lungs however I still would like him to meet with a pulmonology to review his symptoms and CT findings to determine if any further testing would be helpful to establish what may possibly be a unifying diagnosis. No indication for antifungal or antibiotics at this time. Number of [facility] pulmonology office provided for patient to call to schedule. He will also be scheduled with gastroenterology has follow-up in September for repeat endoscopy. Assessment & Plan (07/24/2024 5:47 PM EDT): No indication for antifungal or antibiotics at this time. On the consideration of patient's many symptoms which include purulent sputum which is at times bloody, esophageal irritation, esophagitis, frequent sinusitis, I am concerned that there may be an underlying pulmonary process such as pulm bronchiectasis. To confirm this I have ordered a CT Chest to evaluate for this. I have also referred him to a peer health promoter for further evaluation for this possibility this as well. He does also have an upcoming appointment with [facility] which is scheduled for 08/04 as he requires revision of his dental work that is likely also causing discomfort. Assessment & Plan (07/09/2024 5:12 PM EDT): Pain is greatly improved, no indication for further antifungal or antibiotics at this time. Does have appointment with [facility] scheduled for 08/04 for definitive treatment for his dental work that is caused the pain. Assessment & Plan (05/22/2024 2:01 PM EST): Ongoing esophageal pain, possible that thyroid nodule is causing the symptoms. There is a component of V2/V3 distribution of right jaw pain as well, unclear whether there may be a component of trigeminal neuralgia as well. Regardless we will continue workup with thyroid biopsy as discussed separately. As gabapentin 30 mg 3 times daily is somewhat effective, have increased to 600 mg 3 times daily, AE discussed and discussed that if daytime dosages are sedating, could take 300 mg twice daily with 600 mg nightly. Follow-up in 6 weeks to reassess Assessment & Plan (04/17/2024 1:44 PM EST): Ongoing pain-there is a 1.7 cm thyroid nodule which may be causing his symptoms-referral placed to ENT today-urgent. My nurses will call to follow-up. He will see his PCP next on 05/15/2024. He will call if there are any other issues or concerns. He understands and agrees. Assessment & Plan (04/03/2024 2:45 PM EST): Demetri has ongoing esophageal pain-he is followed by ENT. He will be going for an MRI in the near future. Assessment & Plan (02/03/2024 5:17 PM EDT): Ongoing persistent right-sided esophageal pain, with last EGD revealing erosive esophatitis but not improved with PPI usage. Will repeat CT Neck given it has been about a year since his last imaging. There is evidence of thrush on exam and will treat with Nystatin swish and swallow. No indication for antibiotics at this time. I have placed a new referral to [facility] to re-evaluate with their ENT department as they wanted to repeat a laryngoscopy. - CT Neck - Follow-up with ENT at [facility] - Continue omeprazole BID - Unfortunately the only relief he has had is with hydrocodone and given this period of diagnostic uncertainty I am ok continuing that for now with hope to decrease opiate requirement in the future Assessment & Plan (07/31/2023 12:09 PM EDT): Patient has persistent right-sided esophageal pain, with recent EGD revealing erosive esophagitis however symptoms have not improved with increased PPI usage. Remainder of workup including CT neck, direct laryngoscopy as well as barium swallow were unremarkable. On exam today, there is evidence of thrush which has now been treated with clotrimazole troches she was asked to, we will therefore treat with p.o. antifungal medication. He also has an erythematous right TM, without bulging or fluid behind the TM. This is an equivocal exam for an otitis media, however given his persistent symptoms I will go ahead and empirically treat for AOM with antibiotics today as well. He was previously referred to ENT in [place], now that he has insurance again he is able to get this scheduled. I provided him the number to call to schedule an appointment with their specialist team. - Start fluconazole, 200 mg on day 1, followed by 100 mg daily for total of 14 days - Start amox-clav twice daily for 7 days - Follow-up with ENT at [facility] - Continue omeprazole 20 mg twice daily - Follow-up with me in 3 months to reassess Assessment & Plan (05/31/2023 5:33 PM EST): Patient has persistent right-sided esophageal pain, which he has had since December. Previous work-up includes a CT Neck from 12/2022 which was unremarkable, direct laryngoscopy which was negative as was as a barium swallow study with GI which was unremarkable. He does have an upcoming EGD next month. Overall, the etiology of patient's significant esophageal pain remains unclear. He does again have evidence of oral candidiasis and I will treat again for thrust with clotrimazole troches but unclear if this is related to patient's pain. Otherwise I have placed a referral to ENT in [place] for second evaluation given persistent pain which is now requiring opiates for analgesia. - Continue follow-up with GI - Referral to ENT in [place] placed - Refill of clotrimazole troches sent to patient's pharmacy - Start hydrocodone 5mg BID PRN - Refill of sucralfate QID Attention deficit hyperactiv ity disorder (ADHD), predominantly inattentive type 01/02/2023 Assessment & Plan (05/22/2024 2:01 PM EST): Due for refill of Adderall, prescribed today. Anxiety state 09/17/2017 Assessment & Plan (07/24/2024 5:46 PM EDT): Maintained on citalopram 10 mg daily as well as Xanax 1 mg twice daily. He requested an increase in his Xanax prescription, discussed I am not comfortable increasing this. Could consider increase in citalopram however because his pain has been so severe we decided to increase his gabapentin to target both pain as well as anxiety, to increase to 900 mg 3 times daily. A new prescription was sent to his pharmacy for this. Assessment & Plan (05/31/2023 4:54 PM EST): Maintained on citalopram as well as alprazolam BID. Anxiety disorder 03/22/2017 Chronic pain 03/22/2017 Assessment & Plan (12/07/2024 5:29 PM EDT): At the end of the visit-Demetri asked for refill of his Xanax and [place]. I informed him that I would not be refilling these controlled medications today over the phone as I am not his PCP. I will be messaging his PCP of record this request. He was understanding of this. Assessment & Plan (09/17/2024 3:01 PM EDT): Maintained on hydrocodone-APAP 5mg TID with good effect. Will work to wean in the future as he sees oral surgery and gets needed dental work. Assessment & Plan (07/24/2024 5:45 PM EDT): Unfortunately patient's pain has worsened and he is running out of his hydrocodone tablets early. On review of chart, he was previously on 10 mg twice daily which he requested to increase to. We will trial to increase gabapentin to 900 mg 3 times daily. However as gabapentin has not been successful in treating his pain I am not confident that this will improve his pain much. Given this and to maximize harm reduction I was agreeable to increasing his hydrocodone prescription from 5 mg twice daily to 5 mg 3 times daily. He was agreeable to this. I have sent in prescription to his pharmacy. I have called the pharmacy to verify the change in prescription. The ultimate goal for his opioid prescription would be to wean off once he receives definitive treatment with oral maxillofacial surgery which is currently scheduled for early next month. Close follow-up in place to reassess pain regimen. Assessment & Plan (07/09/2024 5:13 PM EDT): Will trial weaning off of hydrocodone once he gets definitive treatment with [facility]. Assessment & Plan (06/11/2024 4:46 PM EST): Improved with the gabapentin. Assessment & Plan (05/22/2024 2:02 PM EST): Controlled substance agreement reviewed and signed today. Assessment & Plan (04/17/2024 1:45 PM EST): I refilled his norco today- I gave guidance to only take 1 tab BID - for 28 days (to fill today- early) and to F/U with his PCP on 05/15/24 for further guidance. I also increased his gabapentin- guidance given regarding this medication and its possible side effects. He will see his PCP on 05/15/2024. I informed him to call if there are any other issues or concerns. He understands and agrees. Assessment & Plan (04/03/2024 2:46 PM EST): Demetri has ongoing chronic pains. I refilled his [place] today-I gave him guidance to take this medication as directed. Follow-up with his PCP in a month. He will call if there are any other issues or concerns. He understands and agrees. Gastroesophageal reflux dise ase with esophagitis without hemorrhage 03/22/2017 Assessment & Plan (09/17/2024 3:01 PM EDT): Due for repeat EGD, he is scheduled to meet with GI next month. Assessment & Plan (08/06/2024 12:21 PM EDT): Due for repeat EGD, he is scheduled to meet with GI in September. Assessment & Plan (05/31/2023 4:55 PM EST): Maintained on omeprazole 20mg BID. Has upcoming EGD with GI. Psoriatic arthritis 03/22/2017 Assessment & Plan (07/09/2024 5:11 PM EDT): No issues recently. Assessment & Plan (05/31/2023 4:55 PM EST): No issues recently. Tobacco use disorder 03/22/2017 Assessment & Plan (06/11/2024 4:49 PM EST): Demetri is cutting back- I congratulated him and gave him positive encouragement. Assessment & Plan (07/31/2023 12:09 PM EDT): He has cut back on his cigarette usage, currently 1/3 ppd. Discussed NRT, he would be interested in nicotine gum, declines long-acting NRT. - Nicotine gum 2mg sent to patient's pharmacy - Follow-up in 3 months to reassess Assessment & Plan (05/31/2023 4:55 PM EST): Contemplative regarding cutting back, declines NRT today. Resolved Problems Problem Noted Date Diagnosed Date Resolved Date Encounter for completion of form with patient 07/25/1909/17/2024 Assessment & Plan (07/24/2024 5:49 PM EDT): Behavioral contract signed with patient today, reviewed appropriate language and behavior towards staff. He was agreeable. Head congestion 06/11/2024 08/06/2024 Assessment & Plan (06/11/2024 4:51 PM EST): Demetri continues to have head congestion congestion-I refilled his antifungal but I advised him to first complete his current dose and to give it some time before he repeats treatment as his current prescription should treat his symptoms well. I gave guidance regarding additional symptomatic management and to call if there are any other issues or concerns. He understands and agrees. Oral thrush 05/22/2024 07/24/2024 Assessment & Plan (07/09/2024 5:12 PM EDT): No evidence of thrush on exam. Assessment & Plan (05/22/2024 2:03 PM EST): Evidence of mild oral thrush on exam, clotrimazole troches as 5 times daily for 14 days prescribed to patient's pharmacy. Acute mucoid otitis media of right ear 05/22/2024 07/09/2024 Assessment & Plan (05/22/2024 2:04 PM EST): Evidence of AOM of the right ear on exam today, prescription for amox-clav twice daily for 7 days prescribed to patient's pharmacy. Follow-up if not improved. Seasonal allergies 08/03/2022 Assessment & Plan (08/03/2022 4:43 PM EDT): I diagnosed Demetri with seasonal allergies today and I gave him guidance regarding Flonase-to be used as directed, and antihistamine daily-and warm salt water gargles to help drain eustachian tubes. He will call if things get worse or if there are any other issues or concerns. He understands and agrees. Acute otitis media 04/11/2022 Assessment & Plan (04/11/2022 3:26 PM EST): We will start a course of Augmentin for 10 days. He is advised to take a probiotic, eat yogurt, or drink if ear forgot support. He will notify the office if he is having worsening symptoms or failure to improve. Chest tightness 04/11/2022 09/18/2022 Assessment & Plan (04/11/2022 3:28 PM EST): EKG with no ST-T wave changes indicative of ischemia. Pain reproducible, is likely musculoskeletal in nature from strong coughs. He is advised to take Tylenol and ibuprofen as needed for his pain, can try heating pad as well. He will notify the office if symptoms are worsening or failing to improve. Inclusion cyst 08/30/2020 08/06/2024 Assessment & Plan (04/11/2022 3:25 PM EST): He denies any current pain or increase growth to the area. He would like to get it removed and wants a referral for dermatology. Dermatology referral ordered. History of alcohol abuse 05/24/202008/2023 Assessment & Plan (05/31/2023 4:54 PM EST): Sober since 2019. Assessment & Plan (11/24/2020 9:09 AM EDT): Form filled out. Hx of acute alcoholic hepatitis 05/24/2020 05/31/2023 Alcohol abuse 09/06/2017 09/18/2022 Alcoholic hepatitis without ascites 09/06/2017 09/18/2022 Encounters Date Type Department Care Team Description 03/03/2025 Telephone [facility] [address] [place] [address] Anh Elias PA-C, MPH 01/25/2025 [facility] [place] RISK SCORES SYSTEM GENERATED External System Generated Encounter [address] [place] [id number] Unknown, Unknown, 01/21/2025 Telephone [facility] [address] [phone] Adina Urban care agreement 01/14/2025 Telephone [facility] [address] [place] [address] Susy Torres, MAGUE 01/13/2025 Nurse Triage [facility] [address] [place] [address] Nimo Lugo CNP Medication Refill 01/13/2025 Telephone [facility] Internal Medicine [address] [place] [address] Max Tyler MD Medication Management 01/13/[address] [address] Cristal Benjamin MD Medication Refill 01/13/[address] [address] Gabino Cross CNP Medication Refill 01/13/[address] [address] Gabino Cross CNP Medication Refill 01/06/2025 6:27 AM EDT - 01/06/2025 8:48 AM EDT Emergency [facility] Emergency Department [address] [place] [address] Discharge Disposition: Home or Self Care 01/06/2025 Telephone [facility] [address] [place] [address] Cira Menchaca MD 01/05/[address] [address] Cristal Benjamin MD Medication Refill 01/04/[address] [address] Cristal Benjamin MD Medication Refill 01/04/[address] [address] Cristal Benjamin MD Medication Refill 01/04/2025 Refill [facility] [address] [place] [address] Rico Meyers MD Medication Refill 01/04/2025 Refill [facility] [address] [place] [address] Rico Meyers MD Medication Refill 12/29/2024 7:39 PM EDT - 12/29/2024 7:42 PM EDT Emergency [facility] [address] [place] [address] Discharge Disposition: Left Without Being Seen 12/29/2024 10:40 AM EDT Telemedicine [facility] [address] [place] [address] Gus Toth CNP Multiple complaints (Primary Dx) 12/23/2024 Refill [facility] [address] [place] [address] Cristal Benjamin MD Medication Refill from Last 3 Months Immunizations Immunization Administration Dates Next Due DTP 10/04/1992, 9,1987,1987,1987 Hepatitis A, Adult 07/05/2023 Hepatitis B 08/23/2003,03/22/2003,02/18/2003 Hepatitis B Adult 07/05/2023 Hib, unspecified formulation 07/17/1988 Influenza, Unspecified Formulation 01/03/2025 MMR 11/25/1996,1987 Polio, Unspecified Formulation 3,07/17/1988,1987,1986 Td (adult) 5 Lf Tetanus Toxo id, PF, Adsorbed 11/07/1999 Td (adult),2 Lf Tetanus Toxo id, PF, Adsorbed 09/18/2022 Tdap 05/08/2012 Varicella 03/01/1991 Family History Medical History Relation Comments CV disease Father 2 Stroke Mother 2 Relation Status Comments Father 1 Alive Father 2 Mother 1 Alive Mother 2 Social History Tobacco Use Types Packs/Day Years Used Date Smoking Tobacco: Former Cigarettes Passive Smoke Exposure: Never Smokeless Tobacco: Never Tobacco Cessation:Counseling Given: Not Answered Comments:Few months stopped Alcohol Use Standard Drinks/Week [...] Straight 05/28/2022 9: 40 PM EST Primary [place] Affiliation [place] Last Filed Vital Signs Vital Sign Reading Time Taken Comments Blood Pressure 127/83 01/06/2025 6:41 AM EDT Pulse 85 01/06/2025 6:41 AM EDT Temperature 36.6 C (97.8 F) 01/06/2025 6:41 AM EDT Respiratory Rate 18 01/06/2025 6:41 AM EDT Oxygen Saturation 100% 01/06/2025 6:41 AM EDT Inhaled Oxygen Concentration - - Weight 104.3 kg (230 lb) 01/06/2025 6:41 AM EDT Height 188 cm (6' 2 ) 01/06/2025 6:41 AM EDT Body Mass Index 29.53 01/06/2025 6:41 AM EDT Plan of Treatment Health Maintenance Due Date Last Done Comments SMOKING Hx and SMOKELESS TOBACCO SCREENING 01/08/2000 HEPATITIS C SCREENING 2005 DEPRESSION SCREENING 05/31/2024 05/31/2023, 05/31/19 24 COVID-19 VACCINE ( season) 2024 LIPID PANEL 08/06/2025 08/06/2024, 08/28, 05/24/2020, Additional history exists SCREENING FOR DIABETES 12/09/2027 12/08/2024 Adult Td,Tdap Booster 09/18/2032 09/18/2022 , 05/08/2012, 11/07/1999 HIB VACCINES Completed 07/17/1988 HEPATITIS A VACCINES Aged Out 07/05/2023 No long er eligible based on patient's age to complete this topic HIV ONE-TIME SCREENING (18-65 YEARS) Completed 09/25/2024 INFLUENZA VACCINE Completed 01/03/2025 MENINGOCOCCAL VACCINES (ACWY) Aged Out No longer eligible based on patient's age to complete this topic MENINGOCOCCAL VACCINES (B) Aged Out N o longer eligible based on patient's age to complete this topic PNEUMOCOCCAL VACCINES (0-49 years) Aged Out No longer eligible based on patient's age to complete this topic Medical Devices Not on file Procedures Procedure Name Priority Date/Time Associated Diagnosis Comments LIPID PANEL Routine 08/06/2024 12:12 PM EDT Screening for cardiovascular condition from Last 3 Months or Most Recently Relevant to Health Maintenance Results * (ABNORMAL) Lipid panel (08/06/2024 12:12 PM EDT) HDL 63 mg/dL [facility] Comment: Interpretation <40 mg/dL: Low HDL cholesterol (major risk factor for CHD) Greater than or equal to 60 mg/dL: High HDL cholesterol ( negative risk factor for CHD) HDL - cholesterol is affected by a number of factors, e.g. smoking, excerise, hormones, sex and age. CHOLESTEROL 200 0 - 240 mg/dL [facility] TRIGLYCERIDES 52 30 - 160 mg/dL [facility] LDL 127 50 - 129 mg/dL [facility] Comment: LDL levels in terms of risk for coronary heart disease: <100 mg/dL: Optimal 100-129 mg/dL: Near or above optimal 130-159 mg/dL: Borderline high 160-189 mg/dL: High >190 mg/dL: Very High CARDIAC RISK RATIO 3.2(L) 3.4 - 5.0 [facility] Blood 08/06/2024 12:1 2 PM EDT 08/06/2024 12:20 PM EDT us Cristal Benjamin MD LAB BLOOD BKR ORDERABLES Fi nal Result [address] [address] from Last 3 Months or Most Recently Relevant to Health Maintenance Insurance [facility] [place] [facility] [facility] [place] [facility] [facility] Care Teams Neurology Director Relationship Specialty Start Date End Date Kartik Mandel MD [address] [place] [address] [email or web address] PCP - General Family Medicine 03/23/25 Cristal Benjamin MD [address] [facility] [address] [place] [address] MARIA [email or web address] Insurance Assigned Provider 03/13/25 Additional Source Comments The information contained in this document represents components of the legal health record. It is not the complete legal health record.[facility]
--- OUTSIDE RECORDS SUMMARY | 2025-03-24 03:41 | XMS_ITS | Encounter Summary ---
Author Organization [facility] Address [address] [facility] [address] [place] [address] Phone Care Team Providers Care Production Line Mechanic Name Role Phone Andre Capps MD, DDS Unavailable [phone] Max Tyler MD Primary Care Provider Cristal Benjamin MD Unavailable Kartik Mandel MD Primary Care Provider [phone] Encounter Details Date Type Department Care Team (Late st Contact Info) Description 02/18/2024 Procedure Pass [facility] [address] [place], [place] [id number] Social History Tobacco Use Types Packs/Day Years Used Date Smoking Tobacco: Every Day Cigarettes Smokeless Tobacco: Never Comments: Half a [...] Straight 05/28/2022 9: 40 PM EST Primary [place] Affiliation [place] documented as of this encounter Plan of Treatment Not on file documented as of this encounter Visit Diagnoses Not on filedocumented in this encounter Additional Health Concerns Assessment Noted Time PHQ-9 Depression Total Score: 9 05/31/19 24 4:16 PM EST PHQ-2 Depression Total Score: 4 05/31/19 24 4:16 PM EST documented as of this encounter Care Teams Production Line Mechanic Relationship Specialty Start Date End Date Max Tyler MD [address] [place] [address] [email or web address] PCP - General 01/06/25 03/22/25 Kartik Mandel MD [address] [place] [address] PCP - General Family Medicine 03/23/25 Andre Capps MD, DDS [address] [place] [address] vacuum applicator operator 05/26/24 08/03/24 Cristal Benjamin MD [address] [place] [address], [address] [place] [address] MARIA [email or web address] Insurance Assigned Provider 03/13/25 documented as of this encounter Additional Source Comments The information contained in this document represents components of the legal health record. It is not the complete legal health record.[facility]
--- OUTSIDE RECORDS SUMMARY | 2025-03-24 03:41 | XMS_ITS | Encounter Summary ---
Author Organization [facility] Address [address] [facility] [address] [place] [address] Phone Care Team Providers Care News Editor Name Role Phone Max Tyler MD Primary Care Provider [phone] Cristal Benjamin MD Unavailable [phone] Kartik Mandel MD Primary Care Provider [phone] Encounter Details Date Type Department Care Team (Late st Contact Info) Description 03/03/2025 Telephone [facility] Laryngology Division [address] [facility] [address], [place] [address] Anh Elias PA-C, MPH [address] [place] [address] [email or web address] Social History Tobacco Use Types Packs/Day Years [...] Straight 05/28/2022 9: 40 PM EST Primary [place] Affiliation [place] documented as of this encounter Progress Notes * Anh Elias PA-C, MPH - 03/03/2025 3:26 PM EST I called the patient and had a discussion in regards to concerning messages he had sent via patientZipongo He has previously been seen in the office for dysphagia as well as right sided neck pain as well assignificant jaw pain He was evaluated with a CT neck in November 2024 which revealed Dental caries involving the left mandibular canine, 1st and 2nd premolars and 2nd molar. No periapical abscess or subperiosteal abscess. 2. 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 He also was evaluated with [facility] on 04/30/2024 which revealed normal oropharyngeal swallow He has a history of syringomyelia and had not seen a neurologist for some time and had discussed being seen for this. He also has been seen by a office support specialist. We had also discussed that he would benefit by evaluation with [facility] for his jaw pain and he is scheduled to see 1 locally in the next week He has a history of alcohol abuse and has been sober for 5+ years and had sent a message that he would consider reverting back to drinking. He also has had difficulty finding a provider that would refill his narcotic as well as gabapentin. He has been unemployed for some time and is concerned that he will be homeless soon. He has also had difficulty establishing a new PCP The patient denies suicidal ideation at this time and denies that he plans to go back to drinking at this time. He is helping care for his mother and therefore has a purpose in life. I did reach out to our social work colleagues to see if they may able to help with the patient establishing a PCP at a sooner point in time as he currently does have a new PCP appointment in October. 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 however given his other significant physical and mental health concerns would recommend rescheduling this appointment to a later date and his appointment will be canceled documented in this encounter Plan of Treatment Not on file documented as of this encounter Visit Diagnoses Not on filedocumented in this encounter Additional Health Concerns Assessment Noted Time PHQ-9 Depression Total Score: 9 05/31/19 4:16 PM EST PHQ-2 Depression Total Score: 4 05/31/19 4:16 PM EST documented as of this encounter Care Teams News Editor Relationship Specialty Start Date End Date Max Tyler MD [address] [place] [address] [email or web address] PCP - General 01/06/25 03/22/25 Kartik Mandel MD [address] [place] [address] PCP - General Family Medicine 03/23/25 Cristal Benjamin MD [address] [place] [address], [address] [place] [address] MARIA [email or web address] Insurance Assigned Provider 03/13/25 documented as of this encounter Additional Source Comments The information contained in this document represents components of the legal health record. It is not the complete legal health record.[facility]
--- OUTSIDE RECORDS SUMMARY | 2025-03-24 03:41 | XMS_ITS | Encounter Summary ---
Author Organization [facility] Address [address] [facility] [address] [place] [address] Phone Care Team Providers Care Incoming Inspector Name Role Phone Andre Capps MD, DDS Unavailable [phone] Max Tyler MD Primary Care Provider Cristal Benjamin MD Unavailable Kartik Mandel MD Primary Care Provider [phone] Encounter Details Date Type Department Care Team (Late st Contact Info) Description 06/17/2024 Procedure Pass [facility]ovascular [facility] Interventional Radiology [address] [place], [place] [id number] Social History Tobacco Use Types Packs/Day Years [...] Straight 05/28/2022 9: 40 PM EST Primary [place] Affiliation [place] documented as of this encounter Plan of Treatment Not on file documented as of this encounter Visit Diagnoses Not on filedocumented in this encounter Additional Health Concerns Assessment Noted Time PHQ-9 Depression Total Score: 9 05/31/19 24 4:16 PM EST PHQ-2 Depression Total Score: 4 05/31/19 24 4:16 PM EST documented as of this encounter Care Teams Incoming Inspector Relationship Specialty Start Date End Date Max Tyler MD [address] [place] [address] [email or web address] PCP - General 01/06/25 03/22/25 Kartik Mandel MD [address] [place] [address] PCP - General Family Medicine 03/23/25 Andre Capps MD, DDS [address] [place] [address] [email or web address] 05/26/24 08/03/24 Cristal Benjamin MD [address] [place] [address] [address] [place] [address] MARIA [email or web address] Insurance Assigned Provider 03/13/25 documented as of this encounter Additional Source Comments The information contained in this document represents components of the legal health record. It is not the complete legal health record.[facility]
--- OUTSIDE RECORDS SUMMARY | 2025-03-24 03:41 | XMS_ITS | Encounter Summary ---
Author Organization [facility] Address [address] [facility] [address] [place] [address] Phone Care Team Providers Care Manager Digital Name Role Phone Andre Capps MD, DDS Unavailable [phone] Max Tyler MD Primary Care Provider Cristal Benjamin MD Unavailable [phone] Kartik Mandel MD Primary Care Provider [phone] Encounter Details Date Type Department Care Team (Late st Contact Info) Description 08/22/2017 Procedure Pass [facility], Ct Scan - [address] [id number] Social History Tobacco Use Types Packs/Day Years Used Date Smoking Tobacco: Every Day Cigarettes Smokeless Tobacco: Never Alcohol Use Standard Drinks/Week Comments Yes 3 (1 standard drink = 0.6 oz pur e alcohol) daily Sex and Gender Information Value Date Recorded Sex Assigned at Male 05/28/2022 9:40 PM EST Legal Sex Male 9:10 PM EDT Gender Identity Male 05/28/2022 9:40 PM EST Sexual Orientation Straight 05/28/2022 9: 40 PM EST Primary [place] Affiliation [place] documented as of this encounter Plan of Treatment Not on file documented as of this encounter Visit Diagnoses Not on filedocumented in this encounter Care Teams Manager Digital Relationship Specialty Start Date End Date Max Tyler MD [address] [place] [address] [email or web address] PCP - General 01/06/25 03/22/25 Kartik Mandel MD [address] [place] [address] [email or web address] PCP - General Family Medicine 03/23/25 Andre Capps MD, DDS [address] [place] [address] [email or web address] secretary 05/26/24 08/03/24 Cristal Benjamin MD [address] [place] [address] [address] [place] [address] MARIA [email or web address] Insurance Assigned Provider 03/13/25 documented as of this encounter Additional Source Comments The information contained in this document represents components of the legal health record. It is not the complete legal health record.[facility]
--- OUTSIDE RECORDS SUMMARY | 2025-03-24 03:41 | XMS_ITS | Encounter Summary ---
Author Organization [facility] Address [address] [facility] [address] [place] [address] Phone Care Team Providers Care It Operations Specialist Name Role Phone Max Tyler MD Primary Care Provider [phone] Cristal Benjamin MD Unavailable [phone] Kartik Mandel MD Primary Care Provider [phone] Encounter Details Date Type Department Care Team (Late st Contact Info) Description 09/10/2024 Procedure Pass [facility] Interventional [facility]iology [address] [place] [address] Social History Tobacco Use Types Packs/Day Years [...] Straight 05/28/2022 9: 40 PM EST Primary [place] Affiliation [place] documented as of this encounter Plan of Treatment Not on file documented as of this encounter Visit Diagnoses Not on filedocumented in this encounter Additional Health Concerns Assessment Noted Time PHQ-9 Depression Total Score: 9 05/31/19 24 4:16 PM EST PHQ-2 Depression Total Score: 4 05/31/19 24 4:16 PM EST documented as of this encounter Care Teams It Operations Specialist Relationship Specialty Start Date End Date Max Tyler MD [address] [place] [address] [email or web address] PCP - General 01/06/25 03/22/25 Kartik Mandel MD [address] [place] [address] [email or web address] PCP - General Family Medicine 03/23/25 Cristal Benjamin MD [address] [place] [address], [facility] 7 [place] [address] MARIA [email or web address] Insurance Assigned Provider 03/13/25 documented as of this encounter Additional Source Comments The information contained in this document represents components of the legal health record. It is not the complete legal health record.[facility]
--- NOTE | 2025-03-24 03:52 | PC.NURSE ---
pt declined the ketorolac ordered. Provider advised.
[2025-03-24 03:53] VITALS: BP 129/86; PULSE 109; RESP 18; TEMP 36.7; O2SAT 96
[2025-03-25 14:53] LABS: A. Phagocytphilium DNA,RT-PCR NOT DETECTED (NOT DETECTED); Babesia Microti DNA, RT-PCR NOT DETECTED (NOT DETECTED); Borrelia Miyamotoi,DNA RT-PCR NOT DETECTED (NOT DETECTED); E.Chaffeensis DNA RT-PCR NOT DETECTED (NOT DETECTED); Lyme(Borrelia ssp)DNA RT-PCR NOT DETECTED (NOT DETECTED)
[2025-03-26 19:28] LABS: Lyme Abs Screen <0.90 index
== END 2025-03-24 03:53 | disposition home or self-care (01) ==
PROVIDERS: Emergency Provider Emergency Medicine
DX: K08.89 Other specified disorders of teeth and supporting structures (principal)
CPT/HCPCS: 36415; 86617; 86618; 87468; 87469; 87478; 87484; 87798; 99283; 99284